=== PATIENT | male | born 1930 | race Caucasian/White ===

== ENCOUNTER 2021-03-23 12:27 | Inpatient (IN) | payer MEDICARE, OTHER ==
[~2021-03-23] VITALS: Ht 157.5 cm; Wt 57.6 kg
[2021-03-23] MEDS ORDERED: diphenhydrAMINE 50 MG/1 ML VIAL IM ONE ×2 (12:30→14:00)
[2021-03-23] MEDS ORDERED: LORAZEPAM 2 MG/1 ML VIAL IM ONE ×2 (12:30→14:00)
[2021-03-23] MEDS ORDERED: HALOPERIDOL LACTATE 5 MG/1 ML VIAL IM ONE (12:30)
[2021-03-23] MEDS ORDERED: LORAZEPAM 2 MG/1 ML VIAL ONE ×2 (12:46→14:14)
[2021-03-23] MEDS ORDERED: HALOPERIDOL LACTATE 5 MG/1 ML VIAL ONE (12:46)
[2021-03-23] MEDS ORDERED: diphenhydrAMINE 50 MG/1 ML VIAL ONE ×2 (12:47→14:14)
--- NOTE | 2021-03-23 12:54 | NUR ---
PT IS IN ROOM #2B. DR DELGADO EVALUATED THE PT.
[2021-03-23 13:43] LABS: HEMATOCRIT 33.5 % (36.7-47.1); MEAN CORPUSCULAR VOLUME 97.2 fL (73.0-96.2); PLATELET COUNT (AUTO) 161 K/uL (152-348)
[2021-03-23 13:53] LABS: CARBON DIOXIDE 25 mmol/L (21-32); CHLORIDE 109 mmol/L (98-107); CREATININE 3.2 mg/dL (0.6-1.3); GLUCOSE 122 mg/dL (74-106); POTASSIUM 5.6 mmol/L (3.5-5.1); UREA NITROGEN, BLOOD 58 mg/dL (7-18)
[2021-03-23 13:58] LABS: ALANINE AMINOTRANSFERASE 8 U/L (16-63); ALKALINE PHOSPHATASE 49 U/L (50-136); ASPARTATE AMINOTRANSFERASE 15 U/L (15-37); BILIRUBIN,DIRECT 0.1 mg/dL (0.0-0.2); BILIRUBIN,TOTAL 0.2 mg/dL (0.2-1.0); TOTAL PROTEIN, SERUM 6.6 g/dL (6.4-8.2)
[2021-03-23 13:59] LABS: ACETAMINOPHEN < 2.0 ug/mL (10-30)
[2021-03-23] MEDS ORDERED: IV NORMAL SALINE 1000 ML BAG IV ONE (14:00)
[2021-03-23 14:02] LABS: ETHANOL < 3 MG/DL (0-0)
[2021-03-23 14:04] LABS: PHOSPHOROUS 3.7 mg/dL (2.5-4.9)
[2021-03-23] MEDS ORDERED: DEXTROSE 50% 50 ML DISP.SYRIN IV ONE (14:15)
[2021-03-23] MEDS ORDERED: INSULIN REGULAR, HUMAN 300 UNIT/3 ML VIAL IV ONE (14:15)
[2021-03-23] MEDS ORDERED: SODIUM POLYSTYRENE SULFONATE 15 G/60 ML LIQUID UDC PO ONE (14:15)
[2021-03-23] MEDS ORDERED: ALBUTEROL SULFATE 2.5 MG/3 ML NEBU NEB ONE (14:15)
[2021-03-23 14:18] LABS: THYROID STIMULATING HORMONE 2.943 mIU/mL (0.358-3.740)
--- NOTE | 2021-03-23 14:20 | NUR ---
RESTRAINS WERE REMOVED ACCORDING TO DR DELGADO ORDER. PT IS SLEEPING NOW. NO S/S OF ACUTE DISTRESS AT THIS TIME. CONTINUE TO MONITOR THE PT.
[2021-03-23] MEDS ORDERED: ALBUTEROL SULFATE 2.5 MG/3 ML NEBU ONE (14:27)
[2021-03-23 14:56] LABS: *BILIRUBIN,URIN NEGATIVE (NEGATIVE); *BLOOD, URINE NEGATIVE (NEGATIVE); *CLARITY,URINE CLEAR (CLEAR); *COLOR,URINE YELLOW (YELLOW); *KETONES,URINE NEGATIVE (NEGATIVE); *UROBILINOGEN,URINE 0.2 E.U./dl (NORMAL); LEUKOCYTE ESTERASE ,URINE NEGATIVE (NEGATIVE); NITRITE, URINE NEGATIVE (NEGATIVE); UGLUCOSE NEGATIVE (NEGATIVE)
[2021-03-23 15:08] LABS: *AMPHETAMINE, URINE NEGATIVE (NEGATIVE); *CANNABINOID, URINE NEGATIVE (NEGATIVE); *COCCAINE, URINE NEGATIVE (NEGATIVE); *OPIATE, URINE NEGATIVE (NEGATIVE); *PHENCYCLIDINE SCREEN,URINE NEGATIVE (NEGATIVE)
[2021-03-23] MEDS ORDERED: DEXTROSE 50% 50 ML DISP.SYRIN ONE (15:17)
[2021-03-23] MEDS ORDERED: SODIUM POLYSTYRENE SULFONATE 15 G/60 ML LIQUID UDC ONE (15:18)
[2021-03-23] MEDS ORDERED: INSULIN REGULAR, HUMAN 300 UNIT/3 ML VIAL ONE (15:19)
[2021-03-23] MEDS ORDERED: MODA100T29 PO (15:56)
[2021-03-23] MEDS ORDERED: LAMO25TA10 PO (15:56)
[2021-03-23] MEDS ORDERED: LAMO100T17 PO (15:56)
[2021-03-23] MEDS ORDERED: OXCA300T15 PO ×2 (15:56)
[2021-03-23] MEDS ORDERED: FEBU40TA PO (16:27)
[2021-03-23] MEDS ORDERED: MONT10TA22 PO (16:27)
[2021-03-23] MEDS ORDERED: MEMA10TA PO (16:27)
[2021-03-23] MEDS ORDERED: IPRA12.9 IH (16:27)
[2021-03-23] MEDS ORDERED: METO25TA6 PO (16:27)
[2021-03-23] MEDS ORDERED: FISH OIL PO (16:27)
[2021-03-23] MEDS ORDERED: AMIO200T5 PO (16:27)
[2021-03-23] MEDS ORDERED: LEVO75TA7 PO (16:27)
[2021-03-23] MEDS ORDERED: FINA5TAB3 PO (16:27)
[2021-03-23] MEDS ORDERED: AMLO-212 PO (16:27)
[2021-03-23] MEDS ORDERED: COLC0.6T67 PO (16:27)
[2021-03-23] MEDS ORDERED: MULT-1168 PO (16:27)
[2021-03-23] MEDS ORDERED: BUDE8.43 NS (16:27)
[2021-03-23] MEDS ORDERED: ALBU18HF2 INH (16:27)
[2021-03-23] MEDS ORDERED: FLUT10.62 INH (16:27)
[2021-03-23] MEDS ORDERED: PIPERACILLIN SODIUM/TAZOBACTAM 3.375 G in IV DEXTROSE 5% 50 ML IV ONE (17:00)
[2021-03-23 17:58] VITALS: BP 114/72
[2021-03-23] MEDS ORDERED: ACETAMINOPHEN 325 MG TABLET PO PRN (18:00)
[2021-03-23] MEDS ORDERED: ZOLPIDEM 5 MG TABLET PO PRN (18:00)
[2021-03-23] MEDS ORDERED: MAGNESIUM HYDROXIDE 30 ML LIQUID UDC PO PRN (18:00)
[2021-03-23] MEDS ORDERED: ONDANSETRON 4 MG/2 ML VIAL IV PRN (18:00)
[2021-03-23] MEDS: IV NS 1000 ML 1,000 ML IV PRN (18:17)
--- NOTE | 2021-03-23 18:26 | NUR ---
REPORT WAS GIVEN TO TELEMETRY FLOOR RN . PT WAS TRANSFERED TO ROOM #312.
--- NOTE | 2021-03-23 20:00 | NUR ---
Received pt from ER IV on right AC #18 IVF started as ordered no s/s of infiltration. Pt lethargic but easily arousable to touch. VSS. Tele A PACING @ 70's Pacemaker on left chest wall. O2 @ 2 lit via n/c with sat of 97%, Right forearm skin tare covered with Steri strips with serous drainage noted. Bruising on Left lower banda area noted. Wound Care nurse eval and RD eval ordered. KCI bed held secondary to pt was previously combative and might be a fall risk from a slippery air Mattress. Will endorse to next shift if pt is appropriate safety lau for KCI bed. Spoke with pt's SON Allen WILSON [phone], Elke [phone]. Elke, , states that she has DPOA confirmed DNI status and other pertinent hx and information on pt. Requested advance directive and DPOA form from Elke. Elke states that she doesn't have any of the forms "[facility] has all of the forms we need" Will f/u in am for ELKE to sign Release of records from [facility] to [place] for DPOA and advance directive forms. Noted Wheezing on Upper lobes will notify Trista and get HHN tx order. HOB elevated. 1:1 sitter at bedside for safety secondary to pt is on a 72 hr hold to 03/26/21 @1200. Original Advisement form read to and given to pt. Copy of advisement form put on chart. Call light is within reach.
[2021-03-23 20:28] VITALS: BP 110/66
[2021-03-23 22:02] LABS: CARBON DIOXIDE 24 mmol/L (21-32); CHLORIDE 115 mmol/L (98-107); CREATININE 3.3 mg/dL (0.6-1.3); GLUCOSE 84 mg/dL (74-106); UREA NITROGEN, BLOOD 52 mg/dL (7-18)
[2021-03-23] MEDS ORDERED: HALOPERIDOL LACTATE 5 MG/1 ML VIAL IV PRN (22:15)
[2021-03-23] MEDS ORDERED: IPRATROPIUM BROMIDE 0.5 MG/2.5 ML NEBU NEB PRN (22:15)
[2021-03-23] MEDS ORDERED: ALBUTEROL SULFATE 1.25 MG/3 ML NEBU NEB PRN (22:15)
[2021-03-23] MEDS ORDERED: LEVO50TA8 PO (22:47)
--- NOTE | 2021-03-24 00:30 | NUR ---
Pt awake. resp18 b/p 126/72 hr 71. Pt restless attempting to hit 1:1 sitter at bedside. prior Deescalation technique of distraction and therapeutic communication non effective. Haldol given as ordered prn.
[2021-03-24 00:47] VITALS: BP 126/72
[2021-03-24 04:37] VITALS: BP 155/83
[2021-03-24] MEDS ORDERED: HALOPERIDOL LACTATE 5 MG/1 ML VIAL IV PRN (06:30)
[2021-03-24 07:00] LABS: HEMATOCRIT 29.7 % (36.7-47.1); MEAN CORPUSCULAR HEMOGLOBIN 32.2 uug (23.8-33.4); MEAN CORPUSCULAR VOLUME 98.2 fL (73.0-96.2); PLATELET COUNT (AUTO) 145 K/uL (152-348)
[2021-03-24 07:11] LABS: CARBON DIOXIDE 26 mmol/L (21-32); CHLORIDE 115 mmol/L (98-107); CHOLESTEROL 122 mg/dL (<200); GLUCOSE 86 mg/dL (74-106); HDL CHOLESTEROL 46 mg/dL (40-60); POTASSIUM 5.1 mmol/L (3.5-5.1); TRIGLYCERIDES 91 MG/DL (30-150); UREA NITROGEN, BLOOD 48 mg/dL (7-18)
--- NOTE | 2021-03-24 07:15 | NUR ---
RECEIVED PATIENT IN BED AWAKE ALERT AND DISORIENTED STARTING TO GET AGITATED AND RESTLESS WITH ATTEMPTS TO GET OUT OF BED DESPITE SITTER AT THE BEDSIDE ASSISTING WITH ALL NEEDS HE WAS THEN PLACED INTO THE GENNY/CHAIR FOR HIS SAFETY.IVF IS OFF AT THIS TIME WILL REEVALUATE KEHINDE PATIENT REMAINS ON HOLD.TELE IS A PACING WILL CONTINUE TO PROVIDE SAFE AND THERAPEUTIC ENVIRONMENT AT ALL TIMES.
[2021-03-24] MEDS ORDERED: HALOPERIDOL LACTATE 5 MG/1 ML VIAL IM PRN ×2 (08:30→11:30)
--- NOTE | 2021-03-24 08:30 | NUR ---
PATIENT IS VERY AGITATED RESTLESS SHOUTING AT THE TOP OF HIS VOICE SWINGING AT THE NURSE REFUSED TO HAVE HIS VITALS CHECKED UNABLE TO REDIRECT UNABLE TO GIVE HALDOL ORDERED BECAUSE PER THE PHARMACIST HALDOL CANNOT BE GIVEN IV ON THE TELE FLOOR SO DINA NOTIFIED AND ORDER CHANGED TO IM AWAITING FOR THE PHARMACIST TO VERIFY THE ORDER.
--- NOTE | 2021-03-24 10:46 | NUR ---
WOUND CARE CONSULT: UNABLE TO DO SKIN ASSESSMENT DUE TO PT VERY AGITATED AND COMBATIVE. RT ARM STERI STRIPS NOTED WITH DRY DRAINAGE, PRESENT ON ADMISSION. RECOMMENDATIONS MADE FOR SKIN PROTECTION AND WOUND CARE. DISCUSSED WITH NURSNG STAFF. SITTER AT BEDSIDE. MD IN AGREEMENT WITH PLAN OF CARE.
[2021-03-24] MEDS ORDERED: Z GUARD REMEDY PASTE 57 GM TUBE TOP PRN (11:00)
--- NOTE | 2021-03-24 11:04 | NUR ---
PATIENT IS CALMER NOW BUT IS STILL ANGRY AND SOMEWHAT LOUD GETS IRRITATED WHEN NURSE TRIES TO REPOSITION HIM STILL UNABLE TO RECONNECT HIS IVF AT THIS TIME MITTENS IN PLACE HE IS TRYING TO GET OUT OF THE CHAIR AND IS PULLING AND SWINGING BOTH ARMS.
[2021-03-24] MEDS: LORAZEPAM 2 MG/1 ML VIAL IV PRN ×3 (11:50→21:21)
--- NOTE | 2021-03-24 11:55 | NUR ---
PATIENT IS HYPERVOCAL RESTLESS AGITATED TRYING TO GET OUT OF THE CHAIR DESPITE HAVING BILATERAL MITTEN AND A SITTER UNABLE TO REDIRECT AT RISK FOR FALL DR DINA MCMILLAN HERE AND AWARE WITH NEW ORDER AND NOTED ATIVAN GIVEN ORDERED WILL CONTINUE TO OBSERVE.
--- NOTE | 2021-03-24 13:29 | NUR ---
DR GOLD PSYCHIATRIST HERE TO SEE AND EVALUATE PATIENT AND HE CALLED AND SPOKE WITH PATIENTS SON ONEL WITH NO NEW ORDERS AT THIS TIME
[2021-03-24 14:34] LABS: EOSINOPHILS % (MANUAL) 3 % (0-8); LYMPHOCYTES % (MANUAL) 19 % (20-40); MONOCYTES % (MANUAL) 8 % (2-10); NEUTROPHILS % (MANUAL) 70 % (42-75)
[2021-03-24] MEDS: OLANZAPINE ZYDIS 5 MG TAB.RAPDIS PO SCH (16:37)
--- NOTE | 2021-03-24 16:37 | NUR ---
ATTEMPTED TO GIVE PATIENT HIS OLANZAPINE ORDERED BUT HE REFUSED STATED YELLING AT ME AND SAID THAT IF I DID NOT GET OUT OF HERE HE WILL PUT ME IN GROUP HOME MEDICATION WASTED AT THIS TIME.CONTINUE TO BE UNCOOPERATIVE HYPERVOCAL AGITATED PULLING ON HIS MITTENS HEP LOCKS ONE TO ONE SITTER IS AT THE BEDSIDE ASSISTED AND OBSERVING WILL CONTINUE TO OBSERVE AND PROVIDE COMFORT.
--- NOTE | 2021-03-24 17:21 | NUR ---
REMAINS AGITATED SCREAMING AND THREATENING UNABLE TO REDIRECT MEDICATED WITH ATIVAN ORDERED PATIENT ASSISTED INTO BED CHANGED FIXED AND MADE COMFORTABLE IVF CONNECTED AT THIS TIME WITH MUCH DIFFICULTY PATIENT CONTINUES TO PULL AND RESISTIVE WILL CONTINUE TO OBSERVE.
--- NOTE | 2021-03-24 17:53 | NUR ---
PATIENT CONTINUES TO REFUSE HIS VITALS CHECKED ALL DAY NOW HAS EVEN REFUSED HIS O2 TO BE APPLIED UNABLE TO CHECK HIS O2 SAT SATS PATIENT IS REFUSING AND RESISTING AT THIS TIME WILL CONTINUE TO ENCOURAGE HIM TO CHECK HIS SATS.
[2021-03-24 18:00] VITALS: BP 142/85
--- NOTE | 2021-03-24 19:02 | NUR ---
PATIENTS SON ONEL HERE AND UPSET THAT PATIENTS PRIMARY PHYSICIAN AND PRIVATE PSYCHIATRIST HAS NOT BEEN NOTIFIED THAT PATIENT IS HERE AND STATED THAT WHEN HE SPOKE WITH DR GOLD THIS MORNING THAT HE TOLD HIM TO CALL THE PATIENT PRIMARY PSYCHIATRIST AND THAT HE PROVIDED ALL THE PHONE NUMBER YESTERDAY.SI I CALLED DINA MCMILLAN AND DR GOLD AND NOTIFIED THEM TO CALL PATIENTS PRIMARY DOCTORS.
[2021-03-24] MEDS ORDERED: ALBUTEROL SULFATE 8 GM HFA.AER.AD INH SCH (19:15)
[2021-03-24] MEDS ORDERED: IPRATROPIUM BROMIDE 12.9 GM INHALER INH SCH (19:15)
[2021-03-24 20:06] VITALS: BP 117/70
--- NOTE | 2021-03-24 20:36 | NUR ---
Patient son and came in to visit, Son verbally aggressive, asking if hospitalist MD called patient own MD, Cherrie Chandra already [facility] primary [facility] if DR Ashford called patient own psych MD. Son request to speak to hospitalist tomorrow in morning, will notify AM RN and Charge Nurse. Son and refused to sign a consent paper to request for [facility] to release all patient records/his advance directives. Stated "Were not signing any papers now until we speak to hospitalist".
[2021-03-24] MEDS: LAMOTRIGINE 100 MG TABLET PO SCH (20:55)
[2021-03-24] MEDS: Z GUARD REMEDY PASTE 57 GM TUBE TOP SCH (20:56)
--- NOTE | 2021-03-24 21:22 | NUR ---
Patient awake but with confusion, no sob no chest pain, tele monitor A pacing at 72, Patient disruptive and has agitation, tries to removed iv lines, refused fluids, refused food being offered, patient refused any food or fluids, stated "probably poison food" reorient patient that pudding and juices don't have poison, Patient resistive with care and can be aggressive. Given Ativan iv as ordered, cont to monitor, cont 1;1 sitter for safety. cont to monitor.
[2021-03-24] MEDS: IV NS 1000 ML 1,000 ML IV PRN (22:00)
[2021-03-25 03:30] VITALS: BP 120/78
[2021-03-25] MEDS: LORAZEPAM 2 MG/1 ML VIAL IV PRN ×2 (04:07→20:49)
--- NOTE | 2021-03-25 04:09 | NUR ---
Patient asleep but woke up, started yelling and screaming, refused food and fluids, kept clean and dry, tries to get out of bed, also tries to pulled out iv lines and oxygen. cont 1;1 sitter for safety, cont to monitor. Patient refused all po medications, verbally aggressive, cont to reorient.
--- NOTE | 2021-03-25 05:10 | NUR ---
PATIENT AWAKE WANTED SOMETHING TO EAT, GIVEN CHOCOLATE PUDDING ATE 3/4 AND DRANK WATER. PATIENT TOLERATE PUDDING AND WATER, CONT TO MONITOR.
[2021-03-25 07:20] LABS: HEMATOCRIT 32.5 % (36.7-47.1); MEAN CORPUSCULAR HEMOGLOBIN 32.2 uug (23.8-33.4); MEAN CORPUSCULAR VOLUME 97.7 fL (73.0-96.2); PLATELET COUNT (AUTO) 146 K/uL (152-348)
[2021-03-25 07:48] LABS: ALANINE AMINOTRANSFERASE 14 U/L (16-63); ALKALINE PHOSPHATASE 52 U/L (50-136); ASPARTATE AMINOTRANSFERASE 18 U/L (15-37); BILIRUBIN,TOTAL 0.3 mg/dL (0.2-1.0); CARBON DIOXIDE 28 mmol/L (21-32); CHLORIDE 114 mmol/L (98-107); CREATINE KINASE, TOTAL 478 U/L (39-308); CREATININE 2.4 mg/dL (0.6-1.3); GLUCOSE 86 mg/dL (74-106); MAGNESIUM 2.1 mg/dL (1.8-2.4); POTASSIUM 4.8 mmol/L (3.5-5.1); TOTAL PROTEIN, SERUM 6.3 g/dL (6.4-8.2); UREA NITROGEN, BLOOD 37 mg/dL (7-18)
--- NOTE | 2021-03-25 08:00 | NUR ---
PATIENT IN BED AWAKE ALERT BUT VERY CONFUSED AND TALKING INCOHERENTLY AND TRYING TO PULL OUT TUBES/IV, SITTER AT BEDSIDE
[2021-03-25] MEDS: OMEGA-3 FATTY ACIDS/FISH OIL CAPSULE PO SCH (08:29)
[2021-03-25] MEDS: AMLODIPINE 5 MG TABLET PO SCH ×2 (08:30→17:16)
[2021-03-25] MEDS: AMIODARONE HCL 200 MG TABLET PO SCH (08:30)
[2021-03-25] MEDS: LAMOTRIGINE 25 MG TABLET PO SCH (08:31)
[2021-03-25] MEDS: OLANZAPINE ZYDIS 5 MG TAB.RAPDIS PO SCH ×2 (08:31→17:16)
[2021-03-25] MEDS: FINASTERIDE 5 MG TABLET PO SCH (08:31)
[2021-03-25] MEDS: MULTIVITAMINS,THERAPEUTIC TABLET PO SCH (08:32)
[2021-03-25] MEDS: Z GUARD REMEDY PASTE 57 GM TUBE TOP SCH (08:32)
[2021-03-25] MEDS: METOPROLOL TARTRATE 25 MG TABLET PO SCH ×2 (08:32→17:15)
[2021-03-25] MEDS ORDERED: LEVOTHYROXINE SODIUM 50 MCG TABLET PO SCH (09:00)
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
--- NOTE | 2021-03-25 12:30 | NUR ---
RECEIVED A CALL FROM DR HENLEY AND SAID PATIENT CANNOT BE TRANSFERRED TO [facility] DUE TO DELIRIUM ENCEPHALOPATHY. LINUX PROGRAMMER AWARE
[2021-03-25] MEDS: IV 1/2NS 1000 ML 1,000 ML IV PRN (12:39)
--- NOTE | 2021-03-25 13:58 | NUR ---
Lab Head note: This OLIVE KNOCKER called and spoke with patient's Elke, . Elke was available to speak with this OLIVE KNOCKER, although at first she asked if this OLIVE KNOCKER would speak with her son Allen. This OLIVE KNOCKER explained to Elke that this OLIVE KNOCKER had already spoken with Allen earlier today, and that this OLIVE KNOCKER was calling Elke since she was POA. Elke was in agreement to speak with this OLIVE KNOCKER. This OLIVE KNOCKER asked for a copy of the patient's healthcare directive/POA, and Elke said that she wasn't sure if she had a copy, but would look in her old documents. Elke also stated that a copy could be requested from [facility]. This OLIVE KNOCKER stated that Elke would have to sign a Authorization to release form, and asked if it could be faxed to her for her signature, and Elke expressed agreement. Plan of care discussed, which is for patient to go to [facility], and Elke stated that she would rather have patient go to [facility] for psychiatric care. This OLIVE KNOCKER stated that she would relay her request to the treating team, and would then let her know of her options. Elke expressed agreement. This OLIVE KNOCKER informed kiln charger Luther and Client Service Manager Oxana Beltrán of above.
--- NOTE | 2021-03-25 14:38 | NUR ---
Patient will not transfer to [facility] per Dr Calderon consulting psychiatrist. 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 Myke BERMAN was advised by this loan underwriter. regional account manager, Venus, was advised and will advise assigned pillowcase folder. Dr Calderon suggests short term SNF placement.
--- NOTE | 2021-03-25 15:02 | NUR ---
This SYNTHETIC FILAMENT SPINNER attempted to call patient's Elke, , but phone line was busy. Will try again later.
--- NOTE | 2021-03-25 15:55 | NUR ---
This J2EE ENGINEER called patient's Elke [phone], and was able to speak with her. This J2EE ENGINEER informed Elke that per psychiatrist's report, patient's condition is more organic then psychiatric, and therefore [facility] This J2EE ENGINEER reminded Elke that patient will remain on a 5150 hold, which expires at 12 noon on 03/26/21, and that family should prepare for discharge of patient. This J2EE ENGINEER informed Elke that J2EE ENGINEER would ask case management to contact Elke to discuss discharge options and plans. Elke expressed understanding and agreement.
--- NOTE | 2021-03-25 16:07 | NUR ---
CONTINUE 1;1 SITTER, 72 HOLD THROUGH 03/26/21 NOON TIME
[2021-03-25] MEDS: ENSURE ENLIVE (VAN) 240 ML LIQUID PO SCH (17:17)
[2021-03-25] MEDS ORDERED: MONTELUKAST SODIUM 10 MG TABLET PO SCH (18:00)
[2021-03-25] MEDS ORDERED: MEMANTINE HCL 10 MG TABLET PO SCH (18:00)
[2021-03-25 20:00] VITALS: BP 136/71
[2021-03-25] MEDS: LAMOTRIGINE 100 MG TABLET PO SCH (20:48)
[2021-03-26] MEDS: IV 1/2NS 1000 ML 1,000 ML IV PRN (02:40)
--- NOTE | 2021-03-26 03:07 | NUR ---
1;1 sitter at bedside, still on legal status until matthew 12 noo,72 hour hold. slept on and off.no combative behavior observed.
[2021-03-26] MEDS: LORAZEPAM 2 MG/1 ML VIAL IV PRN (04:58)
[2021-03-26 05:09] VITALS: BP 138/72
--- NOTE | 2021-03-26 06:52 | NUR ---
in bed resting quietly, was given ativan 2 mg. iv for agitation and anxiety,endorsed to am nurse in fair condition.vitals w/i normal limits.
[2021-03-26 07:23] VITALS: BP 145/78
--- NOTE | 2021-03-26 07:30 | NUR ---
Patient received in bed with eyes closed, but easily arousable. 1:1 sitter at bedside for safety. Dressing on right arm is clean dry and intact. Right hand IV is patent running IVF at 75 mL/h as ordered. Patient on 72 hour hold and it expires today at noon. As per Dr. Calderon, the hold will not be renewed. No acute distress noted at this time. Plan is for possible D/C. Personal belongings and call light within easy reach. Will continue to monitor.
[2021-03-26] MEDS ORDERED: LEVOTHYROXINE SODIUM 75 MCG TABLET PO SCH (09:00)
[2021-03-26] MEDS: ENSURE ENLIVE (VAN) 240 ML LIQUID PO SCH (09:00)
[2021-03-26] MEDS: OMEGA-3 FATTY ACIDS/FISH OIL CAPSULE PO SCH (09:54)
[2021-03-26] MEDS: LAMOTRIGINE 25 MG TABLET PO SCH (09:54)
[2021-03-26] MEDS: MULTIVITAMINS,THERAPEUTIC TABLET PO SCH (09:54)
[2021-03-26] MEDS: FINASTERIDE 5 MG TABLET PO SCH (09:54)
[2021-03-26] MEDS: OLANZAPINE ZYDIS 5 MG TAB.RAPDIS PO SCH (09:54)
[2021-03-26] MEDS: AMIODARONE HCL 200 MG TABLET PO SCH (09:57)
[2021-03-26] MEDS: AMLODIPINE 5 MG TABLET PO SCH (09:58)
[2021-03-26] MEDS: METOPROLOL TARTRATE 25 MG TABLET PO SCH (09:58)
[2021-03-26] MEDS: Z GUARD REMEDY PASTE 57 GM TUBE TOP SCH (10:00)
[2021-03-26 12:00] VITALS: BP 146/81
--- NOTE | 2021-03-26 13:00 | NUR ---
Wound pictures were taken within 24h of D/C. Therefore, no new pictures were taken.
--- NOTE | 2021-03-26 13:10 | NUR ---
Patient's Elke and son Allen are at bedside.
[2021-03-26 14:06] LABS: A/G RATIO 1.2 (0.7-1.7); ALBUMIN 3.2 g/dL (2.9-4.4); ALPHA-1-GLOBULIN 0.2 g/dL (0.0-0.4); ALPHA-2-GLOBULIN 0.5 g/dL (0.4-1.0); BETA GLOBULIN 0.8 g/dL (0.7-1.3); GAMMA GLOBULIN 0.9 g/dL (0.4-1.8); GLOBULIN, TOTAL 2.6 g/dL (2.2-3.9); M-SPIKE Not Observed g/dL (Not Observed)
--- NOTE | 2021-03-26 14:06 | NUR ---
Patient discharged in satisfactory condition with all his personal belongings. Family expressed understanding of all pertinent information given to them regarding patient's discharge.
--- NOTE | 2021-03-26 14:14 | NUR ---
This POURER METAL was going to make an APS report due to allegations made by patient's son Allen who stated that he feels his mother and his brother are making decisions and having patient sign paperwork that Allen feels patient is not competent enough to sign, however this POURER METAL ended up meeting with APS high school social studies tutor Juliet Escobedo who was visiting patient at the hospital today, in response to previous APS report that was made. This POURER METAL reported to Juliet the conversation this POURER METAL had with patient's son Allen on 03/25, and the allegations Allen had made, and Juliet stated that there have been several APS reports they have received on this patient and family, and all reports were for the same allegations. Juliet stated that this POURER METAL does not need to make another APS report, as this POURER METAL already reported to Juliet in person.
== END 2021-03-26 14:05 | disposition home or self-care (01) | DRG 682 ==
LOC: ER 12:36 → TELE3 17:26 → MEDSURG3 03-25 18:47
PROVIDERS: ADMIT Nurse Practitioner Acute Care; ATTEND Nurse Practitioner Acute Care
DX: N17.0 Acute kidney failure with tubular necrosis (principal); G93.41 Metabolic encephalopathy; E44.1 Mild protein-calorie malnutrition; E87.0 Hyperosmolality and hypernatremia; K82.1 Hydrops of gallbladder; J98.11 Atelectasis; D61.818 Other pancytopenia; K57.32 Diverticulitis of large intestine without perforation or abscess without bleeding; F31.2 Bipolar disorder, current episode manic severe with psychotic features; M87.852 Other osteonecrosis, left femur; M87.851 Other osteonecrosis, right femur; E87.5 Hyperkalemia; I13.10 Hypertensive heart and chronic kidney disease without heart failure, with stage 1 through stage 4 chronic kidney disease, or unspecified chronic kidney disease; N18.4 Chronic kidney disease, stage 4 (severe); T43.595A Adverse effect of other antipsychotics and neuroleptics, initial encounter; Y92.89 Other specified places as the place of occurrence of the external cause; E03.9 Hypothyroidism, unspecified; H91.90 Unspecified hearing loss, unspecified ear; M10.9 Gout, unspecified; Z95.0 Presence of cardiac pacemaker; Z79.51 Long term (current) use of inhaled steroids; G24.01 Drug induced subacute dyskinesia; J44.9 Chronic obstructive pulmonary disease, unspecified; I25.10 Atherosclerotic heart disease of native coronary artery without angina pectoris; D63.1 Anemia in chronic kidney disease; I70.0 Atherosclerosis of aorta; N20.0 Calculus of kidney; N28.1 Cyst of kidney, acquired; D73.4 Cyst of spleen; Z79.899 Other long term (current) drug therapy; R60.0 Localized edema; M51.36 Other intervertebral disc degeneration, lumbar region
CPT/HCPCS: 36415; 70030-TC; 70450; 71045; 83735; 83970; 84100; 84155; 84165; 84443; 85025; 85730; 93005; 94664; 97161; A4663; C1758; G0378; G0480; J1200; J1630; J1815; J2060; J2543; J3490; J3590; J7030; J7060